=== PATIENT | male | born 1935 | race Caucasian/White ===

== ENCOUNTER → 2022-02-22 | Outpatient (CLI) | payer MEDICARE ==
[2022-02-22 15:46] LABS: INR 1.1 (<1.2); Partial Thromboplastin Time 24.6 sec (22.0-30.0); Prothrombin Time 11.7 sec (9.0-12.0)
[2022-02-22 18:10] LABS: HCT 38.3 % (39.6-50.0); MCH 29.1 pg (27.0-32.0); MCHC 31.3 g/dL (32.0-37.0); Mean Platelet Volume 10.3 fL (9.5-12.2); NRBC Per 100 WBC 0 /100 WBCS (0.0-0.0); Platelet Count 294 X 10*3/uL (140-440); RBC 4.12 X 10*6/uL (4.40-5.60); RDW 13.8 % (11.5-14.5); WBC 6.92 X 10*3/uL (4.50-10.00)
[2022-02-22 18:56] LABS: African American GFR (CKD) 65.3 (60.0-200.0); Anion Gap 10.3 mmol/L (10.00-18.00); BUN/Creat Ratio 17.41 Ratio (12.00-20.00); Blood Urea Nitrogen 20.2 mg/dL (9.0-27.0); Calcium 9.2 mg/dL (8.7-10.3); Carbon Dioxide 25.9 mmol/L (20.0-27.5); Non-African American GFR(CKD) 56.3 (60.0-200.0); Potassium 4.8 mmol/L (3.5-5.5)
== END | disposition home or self-care (01) ==
LOC: LABWHC1 13:22
PROVIDERS: ATTEND Thoracic Surgery (Cardiothoracic Vascular Surgery)
DX: I35.1 Nonrheumatic aortic (valve) insufficiency (principal)
CPT/HCPCS: 36415; 80048; 85027; 85610; 85730; 86850; 86900; 86901

== ENCOUNTER 2022-02-24 05:50 | Inpatient (IN) | payer MEDICARE ==
[2022-02-24] MEDS ORDERED: PROTAMINE SULFATE 250 MG in EMPTY BAG 1 BAG IV PRN (06:00)
[2022-02-24] MEDS ORDERED: ELECTROLYTE-A SOLUTION 1,000 ML with POTASSIUM CHLORIDE 100 MEQ, MAGNESIUM SULFATE 16 M... IV PRN ×5 (06:00)
[2022-02-24] MEDS ORDERED: CLEVIDIPINE BUTYRATE 25 MG in EMPTY BAG 1 BAG IV PRN (06:00)
[2022-02-24] MEDS ORDERED: NITROGLYCERIN-D5W PMX 25 MG/250 ML BTL IV PRN (06:00)
[2022-02-24] MEDS ORDERED: ATORVASTATIN 10 MG TAB PO ONE (06:00)
[2022-02-24] MEDS ORDERED: METOPROLOL TARTRATE 12.5 MG TAB PO ONE (06:00)
[2022-02-24] MEDS ORDERED: LACTATED RINGERS 1,000 ML IV SCH ×2 (06:00→09:15)
[2022-02-24] MEDS ORDERED: SODIUM CHLORIDE 0.9% 500 ML 500 ML INTRAARTER PRN (06:00)
[2022-02-24] MEDS ORDERED: ASPIRIN 325 MG TAB PO ONE (06:00)
[2022-02-24] MEDS ORDERED: INSULIN REGULAR 100 UNIT in SODIUM CHLORIDE 0.9% 100 ML IV PRN (06:00)
[2022-02-24] MEDS ORDERED: CLOPIDOGREL 75 MG TAB PO ONE (06:00)
[2022-02-24] MEDS ORDERED: TRANEXAMIC ACID 2,000 MG in SODIUM CHLORIDE 0.9% 80 ML IV PRN (06:00)
[2022-02-24] MEDS ORDERED: SODIUM CHLORIDE 0.9% 1,000 ML IV ONE (06:47)
[2022-02-24] MEDS ORDERED: MIDAZOLAM 2 MG/2 ML VIAL IVP ONE (07:10)
[2022-02-24] MEDS ORDERED: SUGAMMADEX SODIUM 200 MG/2 ML SDV IV ONE (07:46)
[2022-02-24] MEDS ORDERED: PROPOFOL 10 MG/ML 20 ML VIAL IV ONE (07:46)
[2022-02-24] MEDS ORDERED: PHENYLEPHRINE-0.9% NACL SYG 1,000 MCG/10 ML SYRINGE ONE (07:46)
[2022-02-24] MEDS ORDERED: SUCCINYLCHOLINE CHLORIDE 200 MG/10 ML VIAL IV ONE (07:46)
[2022-02-24] MEDS ORDERED: PROTAMINE SULFATE 10 MG/ML 5 ML VIAL IV ONE (07:46)
[2022-02-24] MEDS ORDERED: fentaNYL (PF) 50 MCG/ML 2 ML AMP ONE (07:46)
[2022-02-24] MEDS ORDERED: LIDOCAINE 2% INJ 20 MG/ML (2 ML VIAL) ONE (07:46)
[2022-02-24] MEDS ORDERED: HEPARIN SODIUM,PORCINE 10,000 UNIT/ML 1 ML VIAL ONE (07:46)
[2022-02-24] MEDS ORDERED: ROCURONIUM 10 MG/ML (5 ML VIAL) IV ONE (07:46)
[2022-02-24] MEDS ORDERED: IOPAMIDOL-370 125ML BTL INJ ONE (09:07)
[2022-02-24] MEDS ORDERED: ONDANSETRON 4 MG/2 ML VIAL IVP PRN (09:14)
[2022-02-24] MEDS ORDERED: HYDROcodone/APAP 7.5-325MG 1 EACH TAB PO PRN (09:14)
[2022-02-24] MEDS ORDERED: ACETAMINOPHEN TAB 325 MG TAB PO PRN (09:14)
[2022-02-24] MEDS ORDERED: Potassium Replacement Protocol 1 EACH MISC MISCELLANE PRN (09:14)
[2022-02-24] MEDS ORDERED: ISOSORBIDE MONONITRATE ER 30 MG TAB.ER.24H PO PRN (09:14)
[2022-02-24] MEDS ORDERED: IPRATROPIUM-ALBUTEROL 3 ML NEB INHALATION PRN (09:14)
[2022-02-24] MEDS ORDERED: Magnesium Replacement Protocol 1 EACH MISC MISCELLANE PRN (09:14)
[2022-02-24] MEDS ORDERED: MECLIZINE 25 MG TAB PO PRN (09:14)
--- NOTE | 2022-02-24 09:15 | P.ANPRN ---
Procedure Note - Anesthesia - YOAN Intraop Pre Bypass YOAN Intraop - Anesthesia Indication: Aortic stenosis Date of Procedure: 02/24/22 Pre-operative Diagnosis: Aortic stenosis Post-operative Diagnosis: same, severe MR, TAVR Surgeon: Jerod Rodriges Left Ventricle: EF 50 Ejection Fraction: Normal Regional Wall Motion Abnormalities: None Left Ventricle Hypertrophy: No R. 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 Atrial Dilation: No R. Atrial PFO: No L. Atrial Dilation: Yes Aortic Dissection: No Aortic Calcification: Moderate Plural Effusion: None - YOAN Intraop Post Bypass YOAN Intraop Post Bypass Procedure Performed: TAVR Ejection Fraction: Normal Regional Wall Motion Abnormalities: None R. Ventricle Function: Normal Aortic Valve: TAVR in good position. Peak 12 mmHg, Mean 6 mmHg. Mild perivalvular leak Mitral Valve: Unchanged Tricuspid: Unchanged Pulmonic: Unchanged Aortic Dissection: No
--- NOTE | 2022-02-24 09:30 | P.PCN ---
Date of Procedure: 02/24/22 Operative Findings: TRANSCUTANEOUS AORTIC VALVE REPLACEMENT PROCEDURE PERFORMED: 1. Percutaneous Aortic Valve Implantation using a 26 mm Locke Saira valve with excellent results and only trace aortic insufficiency 2. Transesophageal echocardiography (performed by anesthesia) 3. Ultrasound guided access and repair of right and left femoral artery access site by Perclose closure device. 4. Placement of temporary pacemaker wire. 5. Aortic root angiography INDICATIONS: 1. 86 year-old with a history of severe symptomatic aortic valve stenosis. 2. Symptoms of shortness of breath consistent with NYHA class III PERFORMING PHYSICIANS: 1. Joseph Shaw DO Interventional Cardiology 2. Harlan De La Rosa MD Interventional Cardiology. 3. Jerod Rodriges[MD Remigio, Cardiothoracic Surgeon SEDATION: General anesthesia provided by anesthesia, see separate note APPROACH: Right and left femoral artery via percutaneous approach PROCEDURE DESCRIPTION: The patient was discussed at valve clinic with multidisciplinary approach with cardiothoracic surgeon as well as aerospace medicine physician and thought better treated with TAVR. Risks, benefits, and alternatives of the procedure had been explained to the patient who understood the risks and agreed to proceed. After consents were obtained, patient was brought to the transcatheter aortic valve implantation room in the cardiac fish hatchery laborer and general anesthesia was provided by the alex thesiologist (see separate report). Once full body sterile prep was performed, right subclavian venous access was obtained and a temporary pacemaker was screwed in, performed by cardiothoracic surgery. Pacing threshholds were checked and deemed appropriate. Next the left femoral artery waw accessed using a modified Seldinger technique, ultrasound guidance and micropuncture technique. A 6 British Rabi sheath was placed in the left femoral artery. Next, a 6-British pigtail catheter was advanced into the aorta and positioned in the aortic root, aortic root angiography was performed to determine optimal deployment angle. The right femoral artery was accessed using modified Seldinger technique, micropuncture technique and under direct ultrasound guidance. Femoral angiogram was done showing access in the common femoral artery and a 6Fr sheath was placed. Next preclose technique was performed using a two Perclose. Next a 0.035 Lunderquist wire was placed in the Aorta via a pigtail catheter. Subsequently we did advance the 14-British sheath over the stiff wire under fluoroscopy guidance. Next a 6F- AL2 catheter was advanced over a wire to the aortic root. A straight wire was advanced through the catheter and used to cross the severely stenotic valve. The AL1 was then exchanged for a 6Fr pigtail catheter and pressure measurements were obtained. The 0.035 Lunderquist wire was then positioned in the apex. Next a 26 mm Locke Saira was advanced. The valve was then positioned across the aortic valve and confirmed with aortic root angiography. The valve was then deployed in proper position using slow deployment and with rapid pacing in conjuncture with aortic root angiography and YOAN. The delivery system was withdrawn back into the arch and an aortic root injection in conjunction with YOAN demonstrated a satisfactory result. There was minimal para valvular leak. There was no evidence of any other significant abnormalities. The preclose Perclose was then deployed in the right femoral artery and hemostasis was achieved. Femoral angiogram was performed that showed no contrast leak. The right femoral angiogram demonstrated an arteriotomy in the common femoral artery and this was repaired using a 6F angioseal device with complete hemostasis. The temporary venous pacemaker was sutured in place. The patient was then transported to the ICU in hemodynamically stable condition, requiring no pressor support. COMPLICATIONS: None RECOMMENDATIONS: The patient will be monitored in the ICU for hemodynamic and electrical stability.
--- NOTE | 2022-02-24 09:34 | P.OP ---
Date of Procedure: 02/24/22 Preoperative Diagnosis: Tricuspid CALCIFIC aortic stenosis Postoperative Diagnosis: Same Procedure(s) Performed: Percutaneous transfemoral transcatheter aortic valve replacement with 26 mm Saira II prosthesis Implants: 26 mm Saira II valve Anesthesia: GETA Surgeon: Jerod Rodriges (Cardiovascular surgeon) Project Manager Finance #1: Harlan De La Rosa (telecommunications officer) Project Manager Finance #2: Joseph Shaw (Second emergency nurse) Estimated Blood Loss (ml): 10 IV fluids (ml): 1,000 Urine output (ml): 0 Pathology: none sent Condition: stable Disposition: ICU Indications for Procedure: 86-year-old male presents with relatively rapid progression of dyspnea and shortness of breath. He is found to have severe aortic valvular stenosis. He also has mitral might regurgitation which is moderate. He was seen in the high- risk valve clinic and felt to be appropriate candidate for transcatheter aortic valve replacement. He was considered high risk for double valve replacement. Was felt that if he did not achieve adequate symptomatic recovery after transcatheter aortic valve replacement that consideration could be given to mitral clip repair of the mitral valve. Operative Findings: Transvalvular gradient was measured at 40 mmHg with simultaneous ventricular and systemic arterial readings. Valve implanted at a good depth with good seal and no significant aortic insufficiency following valve implant. Right common femoral arteriogram following closure demonstrated excellent closure with no stenosis and no leak. Description of Procedure: Patient was brought to the cardiac catheterization laboratory and placed supine on the operating table. Gen. anesthesia was induced. A minimum of muscular relaxant was used due to history of asthenia gravis. Right subclavian access was obtained with an 18-gauge needle and a guidewire threaded into the right atrium without difficulty. Introducer and dilator were placed. A screw-in ventricular wire was manipulated into the apex of the right ventricle and screwed in. Pacing thresholds were below 1 V. Introducer sheath was removed and the lead was secured to the skin at the exit site. Bilateral femoral access was obtained under ultrasound guidance. On the left the long 6-Icelandic sheath was placed up into the descending thoracic aorta and a pigtail advanced into the right coronary cusp of the right sinus of Valsalva. On the right 6-Icelandic sheath was placed and then 2 Perclose devices were deployed. Following this an 8-Icelandic sheath was placed and over a stiff wire this was changed to a 14-Icelandic sheath following systemic anticoagulation with heparin. Through the 14-Icelandic sheath valve was crossed and pigtail catheter positioned in the apex of the ventricle. Transvalvular gradients were measured as noted above. Safari wire was placed in the apex of the ventricle. 26 valve was loaded on the back table and brought up onto the table. After assuring adequate hemostasis by ACT monitoring the valve was advanced over the Safari wire through the 14-Icelandic sheath and into the descending thoracic aorta. The balloon was pulled back into the valve stent and then catheter was curved and advanced around the aortic arch and across the aortic valve. Was positioned appropriately. Under rapid ventricular pacing the valve was deployed at a 2080 position successfully without difficulty. There was no significant aortic insufficiency on YOAN. The delivery system was removed. Heparin was reversed with protamine. 14-Icelandic sheath was removed from the right groin and the 2 Perclose devices were snared down with excellent hemostasis. Completion angiogram was serrated successful closure as noted above. Femoral access was removed on the left by Dr. De La Rosa. Patient tolerated the procedure well, was extubated and transferred to ICU in stable condition.
[2022-02-24 09:44] LABS: Glucose,Whole Blood 81 mg/dL (70-110)
[2022-02-24 10:03] LABS: Basophils % (A) 0 %; Eosinophils # (A) 0.1 k/uL (0-0.7); Eosinophils % (A) 2 %; HCT 35.1 % (39.0-53.0); HGB 11.2 gm/dL (13.0-17.5); Hypochromasia Slight; Lymphocytes # (A) 1.8 k/uL (1.0-4.8); Lymphocytes % (A) 26 %; MCH 29.6 pg (25.0-35.0); MCHC 31.8 g/dL (31.0-37.0); MCV 92.9 fL (80.0-100.0); Mean Platelet Volume 7.9; Monocytes # (A) 0.4 k/uL (0-1.0); Monocytes % (A) 5 %; Neutrophils # (A) 4.5 k/uL (1.3-7.7); Neutrophils % (A) 65 %; Platelet Count 211 k/uL (150-450); RBC 3.78 m/uL (4.30-5.90); RDW 13.6 % (11.5-15.5)
[2022-02-24 10:09] LABS: INR 1.2 (<1.2); Partial Thromboplastin Time 28.8 sec (22.0-30.0); Prothrombin Time 12.4 sec (9.0-12.0)
[2022-02-24] MEDS: ATORVASTATIN 10 MG TAB PO SCH (10:09)
[2022-02-24] MEDS: amLODIPine 5 MG TAB PO SCH (10:09)
[2022-02-24] MEDS: TAMSULOSIN 0.4 MG CAP.ER.24H PO SCH (10:09)
[2022-02-24] MEDS: CHOLECALCIFEROL 25 MCG (1000 IU) TABLET PO SCH (10:09)
[2022-02-24] MEDS: DONEPEZIL 10 MG TAB PO SCH (10:10)
[2022-02-24 10:14] LABS: Calcium 8.3 mg/dL (8.4-10.2); Magnesium 1.9 mg/dL (1.6-2.3); Potassium 3.7 mmol/L (3.5-5.1); Total Bilirubin 0.4 mg/dL (0.2-1.3); Total Protein 4.8 g/dL (6.3-8.2)
[2022-02-24] MEDS ORDERED: MAGNESIUM SULFATE-D5W PMX 1 GM in DEXTROSE/WATER 1 100ML.BAG IVPB ONE (10:33)
[2022-02-24] MEDS: POTASSIUM CHLORIDE 10 MEQ in WATER FOR INJECTION 1 100ML.BAG IVPB SCH ×2 (11:38→15:19)
--- NOTE | 2022-02-24 12:58 | P.ANPRN ---
Procedure Note - Anesthesia - Invasive Line Right Arterial Line Time Out Performed: Yes Date of Procedure: 02/24/22 Time of Procedure: 07:10 Location of Patient: PreOp Preparation: Sterile Prep, Sterile Dressing Arterial Line Location: Radial Ultrasound Used: Yes Purpose - Visualization and Identification of Vasculature: Yes Needle Guage: 20 Image Stored and Saved: Yes Narrative: Right radial arterial line placed under u/s guidance using Seldinger technique. Line sutured in place. Biopatch and sterile dressing applied.
[2022-02-24 14:08] VITALS: BMI 24.0
--- NOTE | 2022-02-24 15:19 | XR ---
EXAMINATION TYPE: XR chest 1V portable DATE OF EXAM: 02/24/2022 3:11 PM COMPARISON: Chest radiographs from 02/03/2022. TECHNIQUE: XR chest 1V portable Portable AP radiograph of the chest. CLINICAL INDICATION:Male, 86 years old with history of Post Operative Cardiac Surgery; FINDINGS: Lungs/Pleura: There is no evidence of pleural effusion, focal consolidation, or pneumothorax. Pulmonary vascularity: Unremarkable. Heart/mediastinum: Cardiomediastinal silhouette is unremarkable. Post heart valve repair changes. At herosclerosis of the aorta. Musculoskeletal: No acute osseous pathology. Degeneration changes of the shoulders bilaterally. Other findings: None Lines/Tubes: Cardiac conduction lead projecting over the inferior mediastinum/heart. IMPRESSION: Post cardiac valve replacement changes.
[2022-02-24] MEDS: ALPRAZolam 0.25 MG TAB PO PRN ×2 (15:28→21:54)
[2022-02-24 16:23] LABS: Glucose,Whole Blood 95 mg/dL (70-110)
[2022-02-24] MEDS: HEPARIN SODIUM,PORCINE/PF 5,000 UNIT/0.5 ML SYRINGE SQ SCH (23:35)
[2022-02-25] MEDS ORDERED: LACTATED RINGERS 1,000 ML IV SCH (00:01)
[2022-02-25] MEDS: TAMSULOSIN 0.4 MG CAP.ER.24H PO SCH (06:19)
[2022-02-25 07:01] LABS: Basophils % (A) 0 %; Eosinophils % (A) 0 %; HCT 33.4 % (39.0-53.0); HGB 10.8 gm/dL (13.0-17.5); Hypochromasia Slight; Lymphocytes # (A) 1.1 k/uL (1.0-4.8); Lymphocytes % (A) 10 %; MCH 29.7 pg (25.0-35.0); MCHC 32.2 g/dL (31.0-37.0); MCV 92.4 fL (80.0-100.0); Mean Platelet Volume 7.9; Monocytes # (A) 1.1 k/uL (0-1.0); Monocytes % (A) 10 %; Neutrophils # (A) 8.6 k/uL (1.3-7.7); Neutrophils % (A) 77 %; Platelet Count 181 k/uL (150-450); RBC 3.62 m/uL (4.30-5.90); RDW 13.6 % (11.5-15.5); WBC 11.2 k/uL (3.8-10.6)
--- NOTE | 2022-02-25 07:02 | P.CNPUL ---
History of Present Illness Consult date: 02/25/22 Requesting physician: Harlan De La Rosa Reason for consult: other Chief complaint: Aortic stenosis. History of present illness: Pulmonary consult dated 02/25/2022. 86-year-old gentleman who was seen recently in consultation, February 02, with an episode of syncope/near syncope. The patient was evaluated and found have severe aortic stenosis, and the plan was to do a transcatheter aortic valve replacement. I was asked to see him because of his poor lung function. The patient underwent transcatheter aortic valve replacement on February 24, and today's postop day #1. The surgeon was Dr. Rodriges and Dr. De La Rosa. Currently, he is in the ICU, room 251. He is on room air. He is getting saline at 50 mL an hour. The patient is extremely hard of hearing, and also a bit demented. I saw him in the office, and did pulmonary function testing on him. They were normal. He does have a history of hypertension, hyperlipidemia, and coronary disease which is relatively mild. He also has a history of a clotting disorder for which she sees a glassworker. White count 7, hemoglobin 11.2, hematocrit 35.1, and platelet count 211,000. PT 12.4, INR 1.2, PTT 28.8. Sodium 137, potassium 3.7, oriented 107, CO2 21, anion gap 9, BUN 18, creatinine 1. Albumin is 3. A chest x-ray shows post cardiac valve replacement changes. Review of Systems REVIEW OF SYSTEMS: CONSTITUTIONAL: [Negative.] NEUROLOGIC: Near syncope/syncope. HEENT: [ Negative.] CARDIAC: [Negative.] PULMONARY: Shortness of breath on exertion. GI: [Negative.] : [Negative.] RHEUMATOLOGIC: [ Negative.] IMMUNOLOGIC: [ Negative.] ENDOCRINE: [Negative. 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 Known aortic valve stenosis, hx. of right crushed leg-had compartment syndrome after attempted to drain hematoma in leg years ago, mild dementia-takes rivastigmine for, denies hx. of myasthenia gravis, SOB w/exertion, recent hx. of aspiration pneumonia after YOAN per History of Any Multi-Drug Resistant Organisms: None Reported Past Surgical History: Appendectomy, Cholecystectomy, Heart Catheterization, Heart Catheterization With Stent, Orthopedic Surgery, Tonsillectomy Additional Past Surgical History / Comment(s): rotator cuff repairs benjamin, recent YOAN Past Anesthesia/Blood Transfusion Reactions: Previous Problems w/ Anesthesia Additional Past Anesthesia/Blood Transfusion Reaction / Comment(s): had aspiration w/recent YOAN, developed pneumonia Date of Last Stent Placement:: 1995 Smoking Status: Former smoker Medications and Allergies Home Medications Medication Instructions Recorded Confirmed Type Atorvastatin [Lipitor] 10 mg PO DAILY 01/28/22 02/24/22 History Cholecalciferol [Vitamin D3 (25 25 mcg PO DAILY 01/28/22 02/23/22 History Mcg = 1000 Iu)] HYDROcodone/APAP 7.5-325MG [Blackwell 1 tab PO Q6H PRN 01/28/22 02/24/22 History 7.5-325] Rivastigmine Tartrate 1.5 mg PO BID 01/28/22 02/24/22 History [Rivastigmine] Tamsulosin [Flomax] 0.4 mg PO DAILY 01/28/22 02/24/22 History Aspirin 81 mg PO DAILY #30 tab 02/04/22 02/24/22 Rx Meclizine [Antivert] 25 mg PO QID PRN #30 tab 02/04/22 02/24/22 Rx Rivaroxaban [Xarelto] 15 mg PO HS #30 tab 02/04/22 02/23/22 Rx Isosorbide Mononitrate [Isosorbide 30 mg PO DAILY PRN 02/24/22 02/24/22 History Mononitrate ER] amLODIPine [Norvasc] 5 mg PO DAILY 02/24/22 02/24/22 History Allergies Allergy/AdvReac Type Severity Reaction Status Date / Time No Known Allergies Allergy Verified 02/24/22 06:21 Physical Exam Osteopathic Statement: *. No significant issues noted on an osteopathic structural exam other than those noted in the History and Physical/Consult. Vitals: Vital Signs Temp Pulse Pulse Resp BP BP BP 02/25/22 05:00 83 18 105/51 02/25/22 04:00 99.2 F 63 105/51 02/25/22 03:00 60 109/44 02/25/22 02:00 86 144/66 02/25/22 01:00 88 16 135/59 02/25/22 00:00 90 135/59 02/24/22 23:00 75 77 H 135/59 02/24/22 22:00 58 L 103/71 02/24/22 21:00 51 L 16 121/49 02/24/22 20:00 98.5 F 58 L 23 112/51 02/24/22 19:09 55 L 110/52 02/24/22 19:00 55 L 16 114/52 02/24/22 18:00 51 L 16 118/52 02/24/22 17:00 51 L 16 118/52 02/24/22 16:00 98 F 52 L 16 90/49 02/24/22 15:00 53 L 18 146/50 02/24/22 14:00 52 L 18 02/24/22 13:00 49 L 14 108/58 02/24/22 12:00 98 F 51 L 88 H 117/55 02/24/22 11:30 48 L 15 02/24/22 11:15 51 L 17 117/55 02/24/22 11:00 51 L 13 02/24/22 10:45 51 L 14 02/24/22 10:30 54 L 13 141/57 02/24/22 10:15 47 L 12 141/57 02/24/22 10:00 56 L 19 132/60 02/24/22 09:48 97.4 F L 58 L 17 132/60 02/24/22 07:25 98.1 F 48 L 16 142/63 152/67 Pulse Ox 02/25/22 05:00 93 L 02/25/22 04:00 93 L 02/25/22 03:00 93 L 02/25/22 02:00 95 02/25/22 01:00 94 L 02/25/22 00:00 94 L 02/24/22 23:00 94 L 02/24/22 22:00 96 02/24/22 21:00 97 02/24/22 20:00 97 02/24/22 19:09 95 02/24/22 19:00 95 02/24/22 18:00 96 02/24/22 17:00 97 02/24/22 16:00 96 02/24/22 15:00 98 02/24/22 14:00 98 02/24/22 13:00 98 02/24/22 12:00 96 02/24/22 11:30 97 02/24/22 11:15 98 02/24/22 11:00 96 02/24/22 10:45 96 02/24/22 10:30 96 02/24/22 10:15 100 02/24/22 10:00 100 02/24/22 09:48 100 02/24/22 07:25 99 Intake and Output 02/24/22 02/24/22 02/25/22 14:59 22:59 06:59 Intake Total 952 400 550 Output Total 200 50 650 Balance 752 350 -100 Intake: IV 600 350 Lactated Ringers 1,000 ml 350 @ 50 mls/hr IV .Q20H SUNDAY Rx#:[id number] Intake, IV Titration 252 400 200 Amount Lactated Ringers 1,000 ml 252 250 @ 50 mls/hr IV .Q20H SUNDAY Rx#:[id number] Lactated Ringers 1,000 ml 150 100 @ 50 mls/hr IV .Q20H SUNDAY Rx#:[id number] ceFAZolin 2 gm In Sodium 100 Chloride 0.9% 50 ml @ 100 mls/hr IVPB Q8HR SUNDAY Rx# :[id number] Oral 100 Output: Urine 200 50 650 Other: Weight 71.8 kg 75.1 kg No acute distress, oriented 3. Very hard of hearing. Not on any supplemental oxygen HEENT examination is grossly unremarkable. Neck supple. Full range of motion. No adenopathy thyromegaly or neck vein distention. Cardiovascular examination reveals regular rhythm rate. S1-S2 normal. No S3 or S4. No discernible murmur noted. Heart rate 83 bpm. Lungs reveal clear breath sounds. Breath sounds are equal bilaterally. No adventitious lung sounds including wheezes rhonchi or crackles. Room air saturation is 93%. Abdomen soft bowel sounds are heard. No masses or tenderness. Extremities are intact. No cyanosis clubbing or edema. Skin is without rash or lesion. Neurologic examination is brief but nonfocal. Results - Laboratory Findings CBC and BMP: 02/24/22 09:45 02/24/22 09:45 PT/INR, D-dimer PT 12.4 sec (9.0-12.0) H 02/24/22 09:45 INR 1.2 (<1.2) H 02/24/22 09:45 Abnormal lab findings: Abnormal Labs 02/24/22 02/24/22 02/24/22 09:45 09:45 09:45 RBC 3.78 L Hgb 11.2 L Hct 35.1 L PT 12.4 H INR 1.2 H Carbon Dioxide 21 L Calcium 8.3 L Total Protein 4.8 L Albumin 3.0 L - Diagnostic Findings Chest x-ray: image reviewed Assessment and Plan Assessment: Postop day #1, status post transcatheter aortic valve replacement, for symptomatic severe aortic stenosis. Recent admission to the hospital, for syncope/near syncope secondary to aortic stenosis. History of mild CAD, previous stent placement, 1996. History of hypertension. History of hyperlipidemia. Mild dementia. Extremely hard of hearing. Plan: Plan dated 02/25/2022. The patient is seen in the intensive care unit. The patient was previously seen as prior admission and earlier January. I then saw him in the office, for complete pulmonary function testing, which he did very well on. His bedside spirometry on his last admission was rather poor, and therefore, there was no contraindication from the pulmonary standpoint, for proceeding with transcatheter aortic valve replacement. Patient's on room air. She's getting saline at 50 mL an hour. He's had some issues with urinary retention. He was given his Flomax a bit early today according to the nurse. No additional recommendations are made. I will continue to follow. Time with Patient: Greater than 30
[2022-02-25 07:22] LABS: Ionized Calcium 4.8 mg/dL (4.5-5.3)
[2022-02-25 07:28] LABS: Albumin 2.8 g/dL (3.5-5.0); Calcium 8.2 mg/dL (8.4-10.2); Magnesium 1.8 mg/dL (1.6-2.3); Potassium 4.1 mmol/L (3.5-5.1); Total Bilirubin 0.8 mg/dL (0.2-1.3); Total Protein 4.6 g/dL (6.3-8.2)
[2022-02-25] MEDS ORDERED: PANTOPRAZOLE 40 MG TABLET PO SCH (07:30)
[2022-02-25] MEDS: amLODIPine 5 MG TAB PO SCH (08:31)
[2022-02-25] MEDS: HEPARIN SODIUM,PORCINE/PF 5,000 UNIT/0.5 ML SYRINGE SQ SCH (08:31)
[2022-02-25] MEDS: ATORVASTATIN 10 MG TAB PO SCH (08:31)
[2022-02-25] MEDS: CHOLECALCIFEROL 25 MCG (1000 IU) TABLET PO SCH (08:31)
[2022-02-25] MEDS: DONEPEZIL 10 MG TAB PO SCH (08:42)
[2022-02-25] MEDS ORDERED: MAGNESIUM HYDROXIDE 2,400 MG/10 ML CUP PO PRN (09:00)
[2022-02-25] MEDS ORDERED: bisacodyL 10 MG SUPP RECTAL PRN (09:00)
[2022-02-25] MEDS ORDERED: CLOPIDOGREL 75 MG TAB PO SCH (09:00)
--- NOTE | 2022-02-25 10:52 | P.DS ---
Providers Date of admission: 02/24/22 05:50 Expected date of discharge: 02/25/22 Attending physician: Harlan De La Rosa Consults: 02/23/22 12:41 Consult to Anesthesia Routine Consulting Provider: Anesthesia,Services Consult Reason/Comments: Cardiac Surgery Pre-Op 02/24/22 09:14 Consult Physician Routine Consulting Provider: Estuardo Samano Consult Reason/Comments: Cloth Measurer Consult: post TAVR Do you want consulting provider notified?: Yes Consult Physician Routine Consulting Provider: Jerod Rodriges Consult Reason/Comments: Building Rental Manager Consult: post TAVR Do you want consulting provider notified?: Yes Primary care physician: Stated None Hospital Course: MEDICAL HISTORY: 1. Calcified aortic valve with severe symptomatic aortic valve stenosis 2. Symptoms of shortness of breath and syncope consistent with NYHA class III 3. Moderate to severe mitral regurgitation 4. History of CAD status post PCI 1996 5. Hypertension 6. Hyperlipidemia 7. 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 Myasthenia gravis 9. Dementia 10. BPH 11. 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 Previous tobacco dependence PROCEDURE: 1. Percutaneous aortic valve implantation using a 26 mm Locke Saira valve with excellent results and only trace aortic insufficiency 2. Transesophageal echocardiography performed by anesthesia 3. Ultrasound-guided access and repair of right femoral artery access site by Perclose closure device 4. Placement of temporary pacemaker wire 5. Aortic root angiography HISTORY OF PRESENT ILLNESS: This is an 86-year-old gentleman who follows on an outpatient basis with Dr. Ld Reddy for primary care and Dr. Munguia for cardiology. He has a known history of severe aortic stenosis and has been symptomatic with increased exertional dyspnea as well as syncopal episode. He had been referred to structural heart clinic for evaluation for transcatheter aortic valve replacement after heart catheterization and transesophageal echocardiogram were completed. Echocardiography demonstrated systolic function with EF 55-60%, aortic valve area 0.7 cm with a peak/mean gradient 54/34 mmHg. Heart catheterization showed calcified coronary arteries with mild triple-vessel disease. After workup was completed STS risk score was calculated along with incremental risk and the patient was felt to be high risk for surgical aortic valve replacement, therefore transcatheter aortic valve replacement was recommended. The usual course of TAVR was discussed in detail the patient and his family, risks and benefits were reviewed, shared decision making between cardiology, surgery, and the patient/family took place, and the patient consented to proceed with the procedure. HOSPITAL COURSE: The patient was brought to the hospital on 02/24/22, was taken to the extended stay area, prepared in the usual fashion, and subsequently taken to the cardiac catheterization laboratory where Dr. De La Rosa and Dr. Rodriges completed TAVR procedure under general anesthesia with fluoroscopy and YOAN. The valve was deployed under rapid ventricular pacing and proceeded without event. At the end of the procedure there was a peak/mean gradient 12/6 mmHg, hemodynamics were felt to be acceptable, and there was mild perivalvular leak. Upon completion of the procedure the patient was extubated and was transferred to the cardiovascular intensive care unit where he was recovered and monitored hemodynamically. His oxygen was titrated down, he was tolerating oral diet, his pain was controlled, follow-up TTE demonstrated normal left ventricular systolic function, trace aortic paravalvular leak, and he was ready to be discharged to home on postoperative day #1. He received written and verbal instruction reg arding his medications, activity restrictions, signs and symptoms requiring physician notification, and follow-up appointments. Patient Condition at Discharge: Stable Plan - Discharge Summary Discharge Rx Participant: Yes New Discharge Prescriptions: New Acetaminophen Tab [Tylenol] 650 mg PO Q4HR PRN tab PRN Reason: Fever And/ Or Mild Pain (1-3) Clopidogrel [Plavix] 75 mg PO DAILY #30 tab Continue Tamsulosin [Flomax] 0.4 mg PO DAILY Cholecalciferol [Vitamin D3 (25 Mcg = 1000 Iu)] 25 mcg PO DAILY Rivastigmine Tartrate [Rivastigmine] 1.5 mg PO BID HYDROcodone/APAP 7.5-325MG [Lanse 7.5-325] 1 tab PO Q6H PRN PRN Reason: Pain Atorvastatin [Lipitor] 10 mg PO DAILY Meclizine [Antivert] 25 mg PO QID PRN #30 tab PRN Reason: vertigo Rivaroxaban [Xarelto] 15 mg PO HS #30 tab amLODIPine [Norvasc] 5 mg PO DAILY Isosorbide Mononitrate [Isosorbide Mononitrate ER] 30 mg PO DAILY PRN PRN Reason: Chest Pain Discontinued Aspirin 81 mg PO DAILY #30 tab Discharge Medication List Atorvastatin [Lipitor] 10 mg PO DAILY 01/28/22 [History] Cholecalciferol [Vitamin D3 (25 Mcg = 1000 Iu)] 25 mcg PO DAILY 01/28/22 [History] HYDROcodone/APAP 7.5-325MG [Lanse 7.5-325] 1 tab PO Q6H PRN 01/28/22 [History] Rivastigmine Tartrate [Rivastigmine] 1.5 mg PO BID 01/28/22 [History] Tamsulosin [Flomax] 0.4 mg PO DAILY 01/28/22 [History] Meclizine [Antivert] 25 mg PO QID PRN #30 tab 02/04/22 [Rx] Rivaroxaban [Xarelto] 15 mg PO HS #30 tab 02/04/22 [Rx] Isosorbide Mononitrate [Isosorbide Mononitrate ER] 30 mg PO DAILY PRN 02/24/22 [History] amLODIPine [Norvasc] 5 mg PO DAILY 02/24/22 [History] Acetaminophen Tab [Tylenol] 650 mg PO Q4HR PRN tab 02/25/22 [Rx] Clopidogrel [Plavix] 75 mg PO DAILY #30 tab 02/25/22 [Rx] Follow up Appointment(s)/Referral(s): Cyn Munguia MD [STAFF PHYSICIAN] - 03/03/22 3:45 pm (Appointment 03/03 will be with Nadia ROBBINS for groin check. You will have a 30 day post TAVR echocardiogram at [facility] 05/04/22@3:15 pm. Please come to TAVR clinic 1/2 hour prior to appointment) Ld Bhat MD [STAFF PHYSICIAN] - 1 Week [facility],Structural Heart [NON-STAFF] - 05/04/22 2:45 pm (post TAVR appointment. Will go for echo at [facility] right after appointment) Ambulatory/Diagnostic Orders: Basic Metabolic Panel [LAB.AMB] Location: None Selected Complete Blood Count w/diff [LAB.AMB] Location: None Selected Activity/Diet/Wound Care/Special Instructions: DISCHARGE INSTRUCTIONS: 1. No driving for 1 week, or until physician gives their ok. 2. No lifting, pushing, or pulling more than 5-10 pounds for 1 week. 3. Hold both groins when you cough or sneeze for the next 2 weeks. Bruising is common, but report increased swelling, pain or fever >101F 4. Shower daily. No pool, hot tub, or bathtub for 1 week 5. No powders, lotions, ointments on incisions. 6. No straining, including for bowel movements. Use stool softner if necessary 7. Stairs are not an issue. Go slowly, using handrail and take 1 step at a time. Ambulate several times daily 8. Continue pain control per as needed orders. 9. Take only the medications listed on your discharge form 10. Eat low salt (limited to 2 grams or 2000 milligrams) daily, avoid adding salt, avoid canned/processed foods 11. Take your weight daily in the morning and record, bring with you to your follow up appointments 12. Keep all follow up appointments. You will need a valve clinic appointment at 30 days and 1 year post procedure for follow up 13. You have been referred to and are expected to begin Cardiac Rehab in approximately 4 weeks. 14. You will need antibiotics prior to any dental work, including cleanings, and any surgeries to prevent Endocarditis (bacterial infection in your heart) For any questions or concerns please call your valve coordinators: Eda or Gerard @ Discharge Disposition: HOME SELF-CARE
--- NOTE | 2022-02-25 11:23 | XR ---
EXAMINATION TYPE: XR chest 1V portable DATE OF EXAM: 02/25/2022 Comparison: 02/24/2022 Clinical History: 86-year-old male Post Operative Cardiac Surgery Findings: Endovascular aortic valve replacement noted. Heart upper limits of normal in size. Atherosclerotic ar ch calcifications. Mild interstitial prominence is unchanged. No consolidation, pneumothorax, or pleu ral effusion. Cholecystectomy clips. Impression: Borderline heart size. Endovascular aortic valve replacement. Chronic changes. No definite acute proc ess.
[2022-02-25 12:22] VITALS: BP 128/58; RESP 14; TEMP 97.8
[2022-02-25 13:05] VITALS: PULSE 66
--- NOTE | 2022-02-25 17:35 | CA ---
Transthoracic Echo Report Name: Clive Bob Age: 86 Gender: M : 1935 Exam Date: 02/25/2022 09:23 Exam Location: [place] [facility] Ht (in): 68 Wt (lb): 195 Ordering Physician: Eda Christy Attending/Referring Phys: [id number], Westley Brain Picker Evangelina Webb, LUCAS Procedure CPT: Indications: post TAVR Cardiac Hx: Technical Quality: Good Contrast 1: Total Dose (mL): Contrast 2: Total Dose (mL): MEASUREMENTS (Male / Female) Normal Values 2D ECHO LV Diastolic Diameter PLAX 4.7 cm 4.2 - 5.9 / 3.9 - 5.3 cm LV Systolic Diameter PLAX 4.0 cm IVS Diastolic Thickness 1.3 cm 0.6 - 1.0 / 0.6 - 0.9 cm LVPW Diastolic Thickness 1.4 cm 0.6 - 1.0 / 0.6 - 0.9 cm LV Relative Wall Thickness 0.6 RV Internal Dim ED PLAX 2.4 cm LA Systolic Diameter LX 4.3 cm 3.0 - 4.0 / 2.7 - 3.8 cm LA Volume 90.0 cm??? 18 - 58 / 22 - 52 cm??? M-MODE Aortic Root Diameter MM 3.2 cm MV E Point Septal Separation 0.3 cm DOPPLER AV Peak Velocity 247.8 cm/s AV Peak Gradient 24.6 mmHg AV Mean Velocity 152.5 cm/s AV Mean Gradient 11.3 mmHg AV Velocity Time Integral 50.0 cm LVOT Peak Velocity 110.4 cm/s LVOT Peak Gradient 4.9 mmHg TR Peak Velocity 268.1 cm/s TR Peak Gradient 28.8 mmHg Right Ventricular Systolic Press 33.8 mmHg FINDINGS Left Ventricle Left ventricular ejection fraction is estimated at 50-55%. Mildly increased left ventricular wall thickness. Right Ventricle Normal right ventricular size and function. Right ventricular systolic pressure within normal limits. Right Atrium Normal right atrial size. Left Atrium Mildly increased left atrial diameter. Severely increased left atrial volume. Mildly increased left atrial area. 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 seen on YOAN during TAVR. .[id number] mitral regurgitation. Aortic Valve Normally functioning bioprosthetic aortic valve without stenosis with a peak velocity of 247.8 cm/s, 24.6peak gradient mmHg, mean gradient 11.3 mmHg, Tricuspid Valve Structurally normal tricuspid valve. Pulmonic Valve Structurally normal pulmonic valve. Pericardium Normal pericardium. Aorta Normal size aortic root and proximal ascending aorta. CONCLUSIONS LVH with preserved systolic function Aortic valve replacement, stable Small perivalvular leak, 2 o'clock position in the 5 chamber short axis Moderate to severe mitral regurgitation him a bottle or prolapse Previewed by: Dr. Aaron Leahy MD (Electronically Signed) Final Date: 25 February 2022 17:34
[2022-02-25] MEDS ORDERED: RIVAROXABAN 15 MG TAB PO SCH (21:00)
[2022-02-25] MEDS ORDERED: SENNOSIDES-DOCUSATE SODIUM 1 EACH TAB PO SCH (21:00)
--- NOTE | 2022-02-26 12:36 | CDI ---
Documentation Clarification Form Date: 02/26/22 From: Alanis Chaudhary Admit Date: 02/24/2022 05:50:00 AM Patient Name: Clive Bob Visit Number: [id number] Discharge Date: 02/25/2022 01:15:00 PM ATTENTION: The Clinical Documentation Specialists (CDI) and [facility] Coding Staff appreciate your assistance in clarifying documentation. Please respond to the clarification below the line at the bottom and electronically sign. The CDI & [facility] Coding staff will review the response and follow-up if needed. Please note: Queries are made part of the Legal Health Record. If you have any questions, please contact the author of this message via ITS. Dr. Cyn Munguia, Unspecified CKD is documented is documented in your H&P. Additional clarification regarding the stage of CKD is requested. History/Risk Factors: HTN, aortic stenosis and mitral insufficiency, facto 5 Leiden clotting disorder, MTHFR gene mutation, myasthenia gravis, dementia, mixed hyperlipidemia Patients Historical BUN/CR/GFR: none available Clinical Indicators: Current BUN: 18, 18 CR: 1.00, 1.04 GFR: 67, 65 he stage of the CKD, if known: [ ] CKD Stage 1 (GFR > 90) [ xx ] CKD Stage 2 (GFR 60-89) [ ] CKD Stage 3 (GFR 30-59) [ ] CKD Stage 3a (GFR 45-59) [ ] CKD Stage 3b (GFR 30-44) [ ] CKD Stage 4 (GFR 15-29) [ ] CKD Stage 5 (GFR <15) [ ] ESRD [ ] Other, please specify [ ] Unable to determine MTDD
== END 2022-02-25 13:15 | disposition home or self-care (01) | DRG 267 ==
LOC: 2ORMAIN 05:50 → 2SICU 09:11
PROVIDERS: ADMIT Internal Medicine Interventional Cardiology; ATTEND Internal Medicine Interventional Cardiology
PROC: B24BZZ4 Ultrasonography of Heart with Aorta, Transesophageal (ICD-10-PCS; 2022-02-24)
PROC: 02RF38Z Replacement of Aortic Valve with Zooplastic Tissue, Percutaneous Approach (ICD-10-PCS; principal; 2022-02-24 08:00)
PROC: B3101ZZ Fluoroscopy of Thoracic Aorta using Low Osmolar Contrast (ICD-10-PCS; 2022-02-24 08:00)
DX: I08.0 Rheumatic disorders of both mitral and aortic valves (principal); Z00.6 Encounter for examination for normal comparison and control in clinical research program; D68.51 Activated protein C resistance; E72.12 Methylenetetrahydrofolate reductase deficiency; G70.00 Myasthenia gravis without (acute) exacerbation; F03.90 Unspecified dementia, unspecified severity, without behavioral disturbance, psychotic disturbance, mood disturbance, and anxiety; E78.2 Mixed hyperlipidemia; I25.10 Atherosclerotic heart disease of native coronary artery without angina pectoris; N18.2 Chronic kidney disease, stage 2 (mild); I12.9 Hypertensive chronic kidney disease with stage 1 through stage 4 chronic kidney disease, or unspecified chronic kidney disease; N40.1 Benign prostatic hyperplasia with lower urinary tract symptoms; R33.8 Other retention of urine; G62.9 Polyneuropathy, unspecified; H91.90 Unspecified hearing loss, unspecified ear; M19.90 Unspecified osteoarthritis, unspecified site; Z87.891 Personal history of nicotine dependence; Z79.82 Long term (current) use of aspirin; Z79.01 Long term (current) use of anticoagulants; Z79.899 Other long term (current) drug therapy; Z95.5 Presence of coronary angioplasty implant and graft; Z86.711 Personal history of pulmonary embolism; Z86.718 Personal history of other venous thrombosis and embolism; Z87.01 Personal history of pneumonia (recurrent)
CPT/HCPCS: 33210; 33362; 36415; 71045; 80048; 80053; 82330; 83735; 85025; 85027; 85610; 85730; 86850; 86900; 86901; 93306; 93312; 93320; 93325

== ENCOUNTER → 2022-04-26 | Outpatient (CLI) | payer MEDICARE ==
[2022-04-26 18:06] LABS: Basophils # (A) 0.02 X 10*3/uL (0.00-0.10); Basophils % (A) 0.3 %; Eosinophils # (A) 0.16 X 10*3/uL (0.04-0.35); Eosinophils % (A) 2.3 %; HCT 34.8 % (39.6-50.0); HGB 10.8 g/dL (13.0-17.0); Immature Grans, Automated 0.1 %; Lymphocytes # (A) 1.18 X 10*3/uL (0.90-5.00); Lymphocytes % (A) 16.8 %; MCH 29.1 pg (27.0-32.0); MCV 93.8 fL (80.0-97.0); Mean Platelet Volume 10.7 fL (9.5-12.2); Monocytes # (A) 0.62 X 10*3/uL (0.20-1.00); Monocytes % (A) 8.8 %; NRBC Per 100 WBC 0 /100 WBCS (0.0-0.0); Neutrophils # (A) 5.02 X 10*3/uL (1.80-7.70); Neutrophils % (A) 71.7 %; Platelet Count 197 X 10*3/uL (140-440); RBC 3.71 X 10*6/uL (4.40-5.60); RDW 14.9 % (11.5-14.5); WBC 7.01 X 10*3/uL (4.50-10.00)
[2022-04-26 20:07] LABS: African American GFR (CKD) 69.1 (60.0-200.0); Anion Gap 7.2 mmol/L (10.00-18.00); BUN/Creat Ratio 21.73 Ratio (12.00-20.00); Blood Urea Nitrogen 23.9 mg/dL (9.0-27.0); Calcium 9.3 mg/dL (8.7-10.3); Carbon Dioxide 26.8 mmol/L (20.0-27.5); Non-African American GFR(CKD) 59.6 (60.0-200.0); Potassium 4.7 mmol/L (3.5-5.5)
== END | disposition home or self-care (01) ==
LOC: LABWHC1 13:14
PROVIDERS: ATTEND Thoracic Surgery (Cardiothoracic Vascular Surgery)
DX: Z00.00 Encounter for general adult medical examination without abnormal findings (principal)
CPT/HCPCS: 36415; 80048; 85025